=== PATIENT | male | born 2000 | race Caucasian/White ===

== ENCOUNTER → 2020-03-23 | Outpatient (CLI) | payer OTHER ==
--- NOTE | 2020-03-23 13:54 | RAD ---
MR#: [id number] Date of Study: 03/23/2020 Ordering Physician: SONI VALDOVINOS, Referring Physician: SONI VALDOVINOS, Tech: Sindy Brooks RVT,[facility] APPROVED REPORT Patient Location: OUT-PATIENT Indications Uncontrolled HTN Grayscale images of the bilateral kidneys are grossly unremarkable on limited imaging. Spectral wave forms of the aorta are grossly unremarkable with velocities at the upper limits of normal. Bilateral renal aortic ratios are within normal limits. Velocities are mildly elevated in the right renal art brent but grossly normal within the left side. Renal Artery Doppler Right Renal Artery Left Renal Arter y Proximal 229.0/58.0 cm/secProximal 130.0/40.0 cm/sec Mid 205.0/67.0 cm/secMid 124.0/51.0 cm/sec Distal 150.0/61.0 cm/secDistal 82.0/29.0 cm/sec Renal/Aorta Ratio 0.90Renal/Aorta Ratio 0.50 Prox. Resistive Index 0.8Prox. Resistive Index 0.6 Mid Resistive Index 0.6Mid Resistive Index 0.6 Distal Resistive Index 0.6Distal Resistive Index 0.6 Renal Measurements RightLeft Kidney Nucgxj47.4 cm cmKidney Kormlt92.1 cm cm Right Additional FindingsLeft Additional Findings Aortic Duplex A/PTransverseLongitudinal Proximal Aorta 1.8cm Mid Aorta 1.7cm Distal Aorta 1.2cm Aortic Doppler VelocityWaveform Proximal Aorta 253.0 cm/sec Aorta Mid. 154.0 cm/sec Distal Aorta 183 cm/sec Critical Notification Critical Value: No <Conclusion> 1. No significant renal artery stenosis identified bilaterally Signed by : Soni Valdovinos, Electronically Approved : 03/23/2020 13:54:15
--- NOTE | 2020-03-23 14:23 | CARD ---
MR#: [id number] Date of Study: 03/23/2020 Ordering Physician: SONI PARKS, Referring Physician: SONI PARKS, Tech: Sarika Hooks ISAIAS APPROVED REPORT EXAM: Two-dimensional and M-mode echocardiogram with Doppler and color Doppler. Other Information Quality : Good INDICATION Hypertension/HCVD 2D DIMENSIONS RVDd2.9 (2.9-3.5cm)Left Atrium(2D)3.0 (1.6-4.0cm) IVSd0.7 (0.7-1.1cm)Aortic Root(2D)2.6 (2.0-3.7cm) LVDd5.1 (3.9-5.9cm)LVOT Diameter2.3 (1.8-2.4cm) PWd0.8 (0.7-1.1cm)LVDs3.3 (2.5-4.0cm) FS (%) 35.5 %SV80.1 ml LVEF(%)64.7 (>50%) Aortic Valve AoV Peak Dheeraj.168.9cm/sAoV VTI32.2cm AO Peak GR.11.4mmHgLVOT Peak Dheeraj.136.9cm/s LVOT VTI 25.83cmAO Mean GR.6mmHg JUAN DANIEL (VMAX)3.20pg8YJI (VTI)3.19cm2 Mitral Valve MV E Mvrvsvxx322.4cm/sMV DECEL [id number] MV A Skfhlzay70.6cm/sE/A Ratio2.7 Pulmonary Vein S1 Xivhebqu47.7cm/sD2 Nybfspzu84.8cm/s LEFT VENTRICLE The left ventricle is normal size. There is normal left ventricular wall thickness. The left ventricu lar systolic function is normal and the ejection fraction is within normal range. The Ejection Fracti on is 60-65%. There is normal LV segmental wall motion. The left ventricular diastolic function and f illing is normal for age. There is no ventricular septal defect visualized. RIGHT VENTRICLE The right ventricle is normal size. The right ventricular systolic function is normal. ATRIA The left atrium size is normal. The right atrium size is normal. The interatrial septum is intact wit h no evidence for an atrial septal defect or patent foramen ovale as noted on 2-D or Doppler imaging. AORTIC VALVE The aortic valve is normal in structure and function. Doppler and Color Flow revealed no significant aortic regurgitation. There is no significant aortic valvular stenosis. MITRAL VALVE The mitral valve is normal in structure and function. There is no evidence of mitral valve prolapse. There is no mitral valve stenosis. Doppler and Color Flow revealed no mitral valve regurgitation note d. TRICUSPID VALVE The tricuspid valve is normal in structure and function. Doppler and Color Flow revealed no tricuspid valve regurgitation noted. There is no tricuspid valve stenosis. PULMONIC VALVE The pulmonary valve is normal in structure and function. Doppler and Color Flow revealed no pulmonic valvular regurgitation. There is no pulmonic valvular stenosis. GREAT VESSELS The aortic root is normal in size. The ascending aorta is normal in size. The IVC is normal in size a nd collapses >50% with inspiration. PERICARDIAL EFFUSION There is no evidence of significant pericardial effusion. Critical Notification Critical Value: No <Conclusion> The left ventricle is normal size. The left ventricular systolic function is normal and the ejection fraction is within normal range. The Ejection Fraction is 60-65%. Doppler and Color Flow revealed no significant aortic regurgitation. There is no significant aortic valvular stenosis. Doppler and Color Flow revealed no mitral valve regurgitation noted. Doppler and Color Flow revealed no tricuspid valve regurgitation noted. Signed by : Jaspreet Panchal MD Electronically Approved : 03/23/2020 14:22:41
== END ==
LOC: ECHO 09:43
PROVIDERS: ATTEND Internal Medicine Cardiovascular Disease
DX: I10 Essential (primary) hypertension (principal)
CPT/HCPCS: 76770; 93306